=== PATIENT | female | born 1975 | race Caucasian/White ===

== ENCOUNTER 2024-02-02 09:25 | Outpatient (CLI) | payer MEDICARE, MEDICAID, SELFPAY ==
--- NOTE | ~2024-02-02 | XR_ITS ---
EXAMINATION: XR shoulder LT min 2V DATE: 02/02/2024 09:43 INDICATION: Left shoulder pain TECHNIQUE: AP internally and externally rotated, AP oblique externally rotated and transscapular Y vi ews of the left shoulder were obtained. COMPARISON: None FINDINGS: Normal alignment. No fracture.Mild glenohumeral osteoarthritis with relatively preserved joint space with small marginal osteophyte at the posterior superior glenoid. Mild to moderate acromioclavicular osteoarthritis with small inferiorly directed and large superiorly directed osteophyte at the latera l head of the clavicle. Visualized portion of the left lung are clear. Soft tissues are unremarkable. 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 Reviewed, dictated and finalized at location A. [employer]
== END 2024-02-02 09:26 | disposition home or self-care (01) ==
LOC: MICIMG 09:30
PROVIDERS: PCP Physician Assistant; Visit Provider Physician Assistant
DX: M19.012 Primary osteoarthritis, left shoulder (principal)
CPT/HCPCS: 73030